=== PATIENT | female | born 1985 | race Caucasian/White ===

== ENCOUNTER 2023-01-01 08:55 | Outpatient (OUT) | payer BC, SELFPAY | END 2023-01-01 08:56 | disposition home or self-care (01) | LOC: PST 09:00 | PROVIDERS: Visit Provider Obstetrics & Gynecology | DX: Z01.818 Encounter for other preprocedural examination (principal); Z30.2 Encounter for sterilization ==

== ENCOUNTER 2023-01-10 08:40 | Day surgery (SDC) | payer BC, SELFPAY ==
[2023-01-01 09:16] VITALS: BP 124/79; PULSE 84; RESP 14; TEMP 36.4; O2SAT 98; BMI 19.6
[2023-01-10 08:59] VITALS: BP 101/71; PULSE 64; RESP 18; TEMP 36.1; O2SAT 100; BMI 19.6
[2023-01-10 08:59] LABS: Basophils Absolute Auto 0.1 10^3/uL (0.0-0.1); Basophils Percent Auto 1.1 % (0.2-2.0); Eosinophils Absolute Auto 0.2 10^3/uL (0.0-0.7); Hematocrit 44.1 % (36.0-48.0); Hemoglobin 14.8 g/dL (12.0-16.0); Lymphocytes Absolute Auto 1.4 10^3/uL (1.2-3.8); Lymphocytes Percent Auto 31.4 % (20.5-60.0); Mean Corpuscular HGB Conc 33.6 g/dL (29.9-35.2); Mean Corpuscular Hemoglobin 30.2 pg (26.7-34.0); Monocytes Absolute Auto 0.5 10^3/uL (0.3-0.8); Monocytes Percent Auto 11.1 % (1.7-12.0); Neutrophils Absolute Auto 2.4 10^3/uL (1.4-6.5); Neutrophils Percent Auto 51.4 % (43.0-75.0); Platelet Count 195 10^3/uL (150-450); Red Cell Distribution Width 11.9 % (11.0-15.0); White Blood Count 4.6 10^3/uL (4.0-11.0)
[2023-01-10 09:09] LABS: HCG Quantitative <1 mIU/mL
[2023-01-10] MEDS: LACTATED RINGER'S SOLUTION 1,000 ML 50 ML IV (09:12)
--- NOTE | 2023-01-10 11:54 | PM.ONB ---
Brief Operative Note Date of procedure: 01/10/23 Pre-op diagnosis: desires permanent sterilization, multiparity Post-op diagnosis: same Procedure: PROCEDURE: The patient was taken back to the Operating Room where she was given general anesthesia without difficulty. She was then prepped and draped in the normal sterile fashion after being placed in a dorsal lithotomy position. A wet sponge stick was placed into the patient's vagina. Attention was then turned to the patient's abdomen, where a scalpel was used to make a small infraumbilical incision. The S retractors were then used to dissect the underlying layers until the fascia could be seen. The fascia was then grasped with Priscila clamps and tented up. A knife was then used to make a small incision to the fascia. The muscle was identified, at that time two sutures of #0 Vicryl on a GI needle was then used and placed through the fascia. Theperitoneum was then identified and entered bluntly. The 10-4 Justin was then placed into the patient's abdomen. This was confirmed with direct visualization of the bowel, using the laparoscope. The patient's abdomen was then insufflated using approximately 4 liters of CO2 gas. Survey of the patient's abdomen demonstrated ovaries were normal in appearance as well as both tubes and uterus. A second and third rt and lt lateral robotics ports which were 8 mm in size, was then placed after the skin incision was made under direct visualization The robotic arms were engaged. The patient's tube on the patient's right side was identified and tented up using a grasper, the vessel sealer apparatus was then used to come across the mesosalpingx from the fimbriated end to the insertion site at the uterus, the tube was then amputated and removed in its entirety. This was done on the contralateral side. The tubes were the removed from the patients abdomen. Excellent hemostasis was noted. The lateral ports were then moved under direct visualization with excellent hemostasis. All instruments were removed from the patient's abdomen. The fascia was closed using the #0 Vicryl on GI needle. The skin was closed using 4-0 Vicryl subcuticularly. All instruments were removed from the patient's vagina as well. The patient was taken out of the dorsal lithotomy position and placed in the supine position and taken to recovery in stable condition. Sponge, lap and needle counts were correct x2. Anesthesia: GETA Surgeon: Darryn Dejesus Metal Tile Lather: Ciera Silveira Estimated blood loss (mL): 10 Pathology: other (bilateral tubes) Condition: stable Disposition: floor
[2023-01-10] MEDS: HYDROCODONE/ACETAMINOPHEN 5-325 MG TABLET 1 TAB PO (12:02)
[2023-01-10 12:05] VITALS: BP 119/83; PULSE 98; RESP 14; TEMP 36; O2SAT 99
[2023-01-10 12:29] VITALS: BP 115/75; PULSE 60; RESP 26; O2SAT 99
[2023-01-10 13:00] VITALS: BP 107/74; PULSE 64; RESP 16; O2SAT 100
--- NOTE | 2023-01-10 13:11 | PC.NURSE ---
Denies urge to void; dressings x3 intact to abdomen with scant drainage on right dressing
[2023-01-10 13:47] VITALS: BP 109/71; PULSE 65; RESP 16; O2SAT 100
== END 2023-01-10 13:40 | disposition home or self-care (01) ==
PROVIDERS: Visit Provider Obstetrics & Gynecology
PROC: (CPT 49322; principal; 2023-01-10 10:10)
DX: Z30.2 Encounter for sterilization (principal); N83.01 Follicular cyst of right ovary; E03.9 Hypothyroidism, unspecified; E28.2 Polycystic ovarian syndrome
CPT/HCPCS: 49322; 58661; 36415; 84702; 85025; 88302; 88305; J2704

== ENCOUNTER 2023-05-30 09:09 | Outpatient (OUT) | payer BC, SELFPAY ==
[2023-05-30 09:28] LABS: Basophils Absolute Auto 0.1 10^3/uL (0.0-0.1); Basophils Percent Auto 0.9 % (0.2-2.0); Eosinophils Absolute Auto 0.2 10^3/uL (0.0-0.7); Eosinophils Percent Auto 3.1 % (0.9-7.0); Hematocrit 42.6 % (36.0-48.0); Hemoglobin 13.9 g/dL (12.0-16.0); Lymphocytes Absolute Auto 2.2 10^3/uL (1.2-3.8); Lymphocytes Percent Auto 39.8 % (20.5-60.0); Mean Corpuscular HGB Conc 32.6 g/dL (29.9-35.2); Mean Corpuscular Hemoglobin 30.3 pg (26.7-34.0); Mean Corpuscular Volume 92.8 fL (81.0-99.0); Mean Platelet Volume 10.2 fL (9.5-13.5); Monocytes Absolute Auto 0.5 10^3/uL (0.3-0.8); Monocytes Percent Auto 8.9 % (1.7-12.0); Neutrophils Absolute Auto 2.6 10^3/uL (1.4-6.5); Neutrophils Percent Auto 47.3 % (43.0-75.0); Platelet Count 222 10^3/uL (150-450); Red Blood Count 4.59 10^6/uL (4.20-5.40); Red Cell Distribution Width 11.9 % (11.0-15.0); White Blood Count 5.5 10^3/uL (4.0-11.0)
[2023-05-30 09:36] LABS: Estimated Average Glucose 100 mg/dL; Glycohemoglobin A1C 5.1 % (4.5-6.2)
[2023-05-30 10:18] LABS: Alanine Aminotransferase 17 U/L (14-59); Alkaline Phosphatase 53 U/L (46-116); Anion Gap 13.4; Aspartate Amino Transferase 16 U/L (15-37); BUN Creatinine Ratio 18.1; Bilirubin Total 0.7 mg/dL (0.2-1.0); Calcium 9.3 mg/dL (8.5-10.1); Carbon Dioxide 27.3 mmol/L (21.0-32.0); Chloride 103 mmol/L (98-107); Chol HDL Ratio 2.7; Cholesterol 178 mg/dL (<=200); Estimated GFR (African America >60 (>=60); Estimated GFR (Non-African Ame >60 (>=60); Globulin 3.9 g/dL; Glucose 97 mg/dL (74-106); HDL Cholesterol 66 mg/dL (40-60); Potassium 3.7 mmol/L (3.5-5.1); Sodium 140 mmol/L (136-145); Thyroid Stimulating Hormone 2.156 uIU/mL (0.358-3.740); Total Protein 7.9 g/dL (6.4-8.2); Triglycerides 50 mg/dL (<=150)
== END 2023-05-30 09:10 | disposition home or self-care (01) ==
LOC: LAB 09:10
PROVIDERS: PCP Nurse Practitioner; Visit Provider Nurse Practitioner
DX: Z00.00 Encounter for general adult medical examination without abnormal findings (principal)
CPT/HCPCS: 36415; 80053; 80061; 83036; 84443; 85025

== ENCOUNTER 2024-02-16 20:43 | Outpatient (REF) | payer BC, SELFPAY ==
--- OUTSIDE RECORDS SUMMARY | 2024-02-16 20:45 | XMS_ITS | CCD ---
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 Name Role Phone Gaurav Mcdaniels Unavailable Pricila Valdes Unavailable Unavailable YARED ., DR LAGUNA Attending Unavailable YARED ., DR LAGUNA Consulting Unavailable YARED ., DR LAGUNA Admitting Unavailable DR GAURAV MCDANIELS Primary Care Unavailable DENNIS HARRIS Attending Unavailable DENNIS HARRIS Attending Unavailable DENNIS HARRIS Attending Unavailable Allergies Allergy Classification Reported Allergen(s) Allergy Type Date of Onset Reaction(s) Facility (1 source) Sulfonamides (Antibiotic) Hives/Urticaria [facility] (1 source) Sulfonamides (Antibiotic) Drug allergy (disorder) 0 [facility] Medications Current Medications Medication Drug Class(es) Dates Sig (Normalized) Sig (Original) valACYclovir 500 mg oral tablet (1 source) Herpesvirus Nucleoside Analog DNA Polymerase Inhibitor, Herpes Simplex Virus Nucleoside Analog DNA Polymerase Inhibitor, Herpes Zoster Virus Nucleoside Analog DNA Polymerase Inhibitor Start: 04-25-2021 End: 05-01-2021 take 2 tablets by mouth every eight hours valACYclovir 500 mg oral tablet ; 2 tab(s) orally every 8 hours Quantity: 42 Refills: 0 Ordered: 25-Apr-2021 Pricila Valdes Start: 25-Apr-2021 End: 01-May-2021 Generic Substitution Allowed Comments: It is very important that you take or use this exactly as directed. Do not skip doses or discontinue unless directed by your doctor. Comment on above: It is very important that you take or use this exactly as directed. Do not skip doses or discontinue unless directed by your doctor. Problems Problem Classification Problem Date Documented Date Episodic/Chronic Allergic reactions (2 sources) Skin irritation 04-25-2021 Episodic Comment on above: SKIN IRRITATION Immunizations and screening for infectious disease (1 source) Encounter for screening for human papillomavirus (HPV); Translations: [ENC SCREENING HUMAN PAPILLOMAVIRUS] Onset: 10-19-2022 Episodic Other screening for suspected conditions (not mental disorders or infectious disease) (4 sources) Encounter for screening for malignant neoplasm of cervix; Translations: [ENC SCREENING MALIG NEOPLASM CERV] Onset: 10-15-2022 Episodic Unclassified (1 source) Shingles 04-25-2021 Viral infection (1 source) Herpes zoster; Translations: [Herpes zoster without mention of complication] 04-25-2021 Episodic Results Test Name Value Interpretation Reference Range Facil ity PAP ACOG PANEL 2: 30 to 65on 10-22-2022 . . Normal [facility] Comment on above: Result Comment: Performed at: WB Performed By: #### [id number] #### [facility] [address] [address] [address] Sangeetha Reeder Age Gdln ACOG Testing 30-65 Normal [facility] Comment on above: Performed By: #### [id number] #### [facility] [address] [address] [address] Sangeetha Reeder DIAGNOSIS: Comment Normal [facility] Comment on above: Result Comment: NEGATIVE FOR INTRAEPITHE LIAL LESION OR MALIGNANCY. Performed at: WB Performed By: #### [id number] #### [facility] [address] [address] [address] Sangeetha Reeder HPV Aptima Negative Normal Negative [facility] Comment on above: Result Comment: This nucleic acid amplif ication test detects fourteen high-risk HPV types (16,18,31,33,35,39,45,51,52,56,58,59,66,68) without differentiation. Performed at: =G Performed By: #### [id number] #### [facility] [address] [address] [address] Sangeetha Reeder HPV Genotype Reflex Comment Normal [facility] Comment on above: Result Comment: Criteria not met, HPV Ge notype not performed. Performed at: WB Performed By: #### [id number] #### [facility] [address] [address] [address] Sangeetha Reeder Methodology: Comment Normal [facility] Comment on above: Result Comment: This liquid based ThinPr ep(R) pap test was screened with the use of an image guided system. Performed at: WB Performed By: #### [id number] #### [facility] [address] [address] [address] Sangeetha Reeder Note: Comment Normal [facility] Comment on above: Result Comment: The Pap smear is a scree zohaib test designed to aid in the detection of premalignant and malignant conditions of the uterine cervix. It is not a diagnostic procedure and should not be used as the sole means of detecting cervical cancer. Both false-positive and false-negative reports do occur. . Performed at: WB Performed By: #### [id number] #### [facility] [address] [place] [address] Dr. Sangeetha Reeder Performed by: Comment Normal [facility] Comment on above: Result Comment: Mackenzie Stafford, Cytotech nologist (ASCP) Performed at: WB Performed By: #### [id number] #### [facility] [address] [address] [address] Sangeetha Reeder Specimen adequacy: Comment Normal [facility] Comment on above: Result Comment: Satisfactory for evaluat ion. Endocervical and/or squamous metaplastic cells (endocervical component) are present. Performed at: WB Performed By: #### [id number] #### [facility] [address] [place] [address] Dr. Sangeetha Reeder Provider Note - ED v2on 11-0 Provider Note - ED v2 Provider Note - ED v2: Chart Review: HISTORY OF PRESENTING ILLNESS RODRIGO is a 35 year old Female and was seen by me at 25-Apr-2021 10:39 for a chief complaint of rash. The historian is the patient. Additional Details: Patient presents with 4-day history of rash on her right abdomen. Patient endorses the area was painful a couple of days before the rash showed up, stated it felt tender like a bruise, now she endorses a slight burning sensation on the rash. She denies any symptoms like headache, fever, chills, body aches, fatigue, nausea, vomiting, diarrhea now or before the rash.. She states she did have chickenpox as a child. She is here with her daughter who is going to be one next week and is not vaccinated for chickenpox. Triage Information: Most recent Vital Sign Value Date PAST MEDICAL HISTORY ATTESTATION: I have reviewed and confirmed nurse's/medic's notes for patient's medications, allergies, and medical, surgical, family and social history ALLERGIES/INTOLERANCES: Allergy Allergen: sulfa drugs Type: Drug Category Reaction: Hives/Urticaria HEALTH HISTORY: No documented data. OUTPATIENT MEDICATIONS: Home Medications Review Status for Reconciliation: Complete Med Status: Patient Currently Takes Medications Drug Name: valACYclovir 500 mg oral tablet Instructions: 2 tab(s) orally every 8 hours SIGNIFICANT EVENTS: Other Description:NON SMOKER Additional Notes:04/2021 Past Medical History Description:NO CHRONIC HEALTH ISSUES Additional Notes:04/2021 Past Surgical History Description:NO SURGICAL HISTORY THIS YEAR Additional Notes:04/2021 CHIROPRACTIC CARE: Is : no Is : no REVIEW OF SYSTEMS CONSTITUTIONAL: Negative for: chills, fever and malaise CARDIOVASCULAR: Negative for: chest pain RESPIRATORY: Negative for: dyspnea GASTROINTESTINAL: Negative for: diarrhea, nausea and vomiting; MUSCULOSKELETAL: Negative for: pain INTEGUMENTARY: POSITIVE for: rash Negative for: itching; NEUROLOGICAL: Negative for: headache; All other systems reviewed and are negative RESULTS/VITAL SIGNS VITAL SIGNS: T PRBP SpO2O2(LPM) %FiO2 Method 25-Apr-2021 10:10:[id number] PHYSICAL EXAM CONSTITUTIONAL: Appearance: well appearing Development: well developed Distress: no apparent Manner: appropriate for situation Mentation: awake and alert Mood: appropriate Nourishment: well HENMT: Head Examination: atraumatic Face: no signs of abnormality EYES: Bilteral Eyes: clear Left Conjunctiva: clear Right Conjunctiva: clear CARDIOVASCULAR: Cardiac Rate: normal RESPIRATORY: Respiratory Distress: no respiratory distress NEUROLOGICAL: Level of Consciousness: alert and follows commands Memory: memory/cognition intact Speech: clear Gait and Weight Bearing: normal SKIN: Skin Color: normal for race Skin Temperature: warm and dry Rash Description: PATCHY AREAS; REDDENED and VESICULAR Rash Location: Patchy areas of raised erythema with 1 or 2 vesicles beginning to appear in a linear pattern going around the right trunk. The lesions do not cross the midline and are consistent with shingles presentation. PSYCHIATRIC: Alert and oriented to person, place, time/situation. normal mood and affect. No apparent risk to self or others. MEDICAL DECISION MAKING/ED COURSE MDM/ED COURSE: Discussed Findings with: patient Data Reviewed: vital signs Treatment Plan: Discussed the nature of shingles, advised patient it is very contagious and she should avoid those who are not immune to chickenpox. Advised patient to call her daughter's coke loader to discuss altering her vaccination schedule, or signs or symptoms they should watch for or treatments they should do. Mother states her daughter has a couple of small little red dots on her back. Provided prescription for valacyclovir, provided work note. 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 Discussed signs and symptoms of worsening illness and reasons to follow-up. Patient verbalized understanding and agreement with plan. The pt's clinical presentation is otherwise unremarkable at this time. Based on exam and clinical findings the pt is stable for discharge with instructions to follow up with primary care or seek emergency medical attention for worsening symptoms or any new concerns. CLINICAL IMPRESSION Diagnosis/Annotation: ED Dx Name:Thiago Code:B02.9 Disposition: discharged Type: home ATTESTATION CRITICAL CARE TIME Is this a critically ill patient: no Electronic Signatures: Pricila Valdes (CERTIFIED CORPORATE TRAVEL EXECUTIVE-RISK CONTROL SPECIALIST) (Signed 25-Apr-2021 10:59) Authored: HPI, PMH, ROS, PE, Results/Vital Signs, MDM/ED Course, Clinical Impression, Attestation, Chart Review, Scores Last Updated: 25-Apr-2021 10:59 by Flori Valdes (more content not included)... [facility] Vital Signs Date Time Vital Sign Value Performing Clinician Facility 04-25-2021 [id number] Body height 162.5 cm Gaurav Mcdaniels Other Phone: [facility] 04-25-2021 12:10-040 Body temperature 97.52 [degF] Gaurav Mcdaniels Other Phone: [facility] 04-25-2021 12:10-040 Diastolic blood pressure 68 mm[Hg] Gaurav Mcdaniels Other Phone: [facility] 04-25-2021 12:10-0400 Heart rate 87 /min Gaurav Mcdaniels Other Phone: [facility] 04-25-2021 12:10-0400 Respiratory rate 20 /min Gaurav Mcdaniels Other Phone: [facility] 04-25-2021 12:10-0400 SaO2% (BldA) [Mass fraction] 97 % Gaurav Mcdaniels Other Phone: [facility] 04-25-2021 12:10-0400 Systolic blood pressure 101 mm[Hg] Gaurav Mcdaniels Other Phone: [facility] Encounters Encounter Date Encounter Type Care Provider Facility Start: 01-21-2024 End: 01-21-2024 ambulatory DENNIS AICHHOLZ Not Available Start: 09-11-2023 End: 09-11-2023 ambulatory DENNIS AICHHOLZ Not Available Start: 05-26-2023 End: 05-26-2023 ambulatory DENNIS AICHHOLZ Not Available Start: 10-15-2022 End: 10-15-[address] LUZ ELENA VAIL . Facility: Start: 04-25-2021 End: 04-25-2021 Emergency department patient visit Pricila Valdes [facility] Payers Date Payer Category Payer Unknown [id number] 1985 Unknown [id number] [id number] [id number] 1986 Unknown [id number] [id number] 1986 Unknown [id number] [id number] [id number] 1986 Unknown [id number] Unknown Social History Date Type Detail Facility [facility] Tobacco smoking consumption unknown [facility] Summary Purpose Family History No Family History Records FoundNo Family History Records FoundNo Family History Records Found Advance Directives No Advanced Directives Records FoundNo Advanced Directives Records FoundNo Advanced Directives Records Found Additional Source Comments <item> Privacy Markings (unrecogniz ed section and content) Section Author: Mellissa Lieberman PROHIBITION ON REDISCLOSURE OF CONFIDENTIAL INFORMATION This notice accompanies a disclosure of information concerning a client made to you with the consent of such client. INFORMATION SOURCE (unrecogn ized section and content) DATE CREATED AUTHOR 04/30/2021 [facility] DATE CREATED AUTHOR AUTHOR'S ORGANIZ ATION 10/23/2022 [facility] DATE CREATED AUTHOR AUTHOR'S ORGANIZ ATION 01/23/2024 [facility] FOR RECORDS PERTAINING TO PATIENTS WHO ARE OR HAVE BEEN ENROLLED IN A CHEMICAL DEPENDENCY/SUBSTANCEABUSE PROGRAM, SOME INFORMATION MAY BE OMITTED. This clinical summary was aggregated from multiple sources. Caution should be exercised in using it in the provision of clinical care. This summary normalizes information from multiple sources, and as a consequence, information in this document may materially change the coding, format and clinical context of patient data. In addition, data may be omitted in some cases. CLINICAL DECISIONS SHOULD BE BASED ON THE PRIMARY CLINICAL RECORDS. [facility] [employer] provides no warranty or guarantee of the accuracy or completeness of information in this document.
== END 2024-02-16 20:44 | disposition home or self-care (01) ==
LOC: LAB 20:43
PROVIDERS: PCP Nurse Practitioner; Visit Provider Physician Assistant
DX: Z01.419 Encounter for gynecological examination (general) (routine) without abnormal findings (principal)
CPT/HCPCS: 87624; 88175

== ENCOUNTER 2024-10-01 09:33 | Outpatient (OUT) | payer BC, SELFPAY ==
--- OUTSIDE RECORDS SUMMARY | 2024-10-01 09:50 | XMS_ITS | CCD ---
Author Organization [facility] Care Team Providers Care Hand Crocheter Name Role Phone Gaurav Mcdaniels Unavailable Pricila Valdes Unavailable Unavailable YARED ., DR LAGUNA Attending Unavailable YARED ., DR LAGUNA Consulting Unavailable YARED ., DR LAGUNA Admitting Unavailable DR GAURAV MCDANIELS Primary Care Unavailable Aicjameson EMPLOYMENT CONSULTANT, Elizabeth Unavailable Aaron Bliss MD Primary Care Provider [phone] Betty EMPLOYMENT CONSULTANT, Elizabeth Unavailable Betty EMPLOYMENT CONSULTANT, Elizabeth Unavailable ELIZABETH HERNÁNDEZ Attending Unavailable ELIZABETH HERNÁNDEZ Attending Unavailable ELIZABETH HERNÁNDEZ Attending Unavailable MACKENZIE MONREAL Attending Unavailable BETTY, ELIZABETH Attending Unavailable Allergies Allergy Classification Reported Allergen(s) Allergy Type Date of Onset Reaction(s) Facility (1 source) Sulfonamides (Antibiotic) Hives/Urticaria [facility] (1 source) Sulfonamides (Antibiotic) Drug allergy (disorder) 0 [facility] (3 sources) Sulfonamides (Antibiotic) Propensity to adverse reactions 3 Hives [facility] Medications Current Medications Medication Drug Class(es) Dates Sig (Normalized) Sig (Original) levothyroxine sodium 0.05 mg oral tablet (3 sources) l-Thyroxine End: 04-21-2024 take 1 tablet by mouth in the morning levothyroxine (Synthroid, Levoxyl) 50 MCG tablet Take 50 mcg by mouth in the morning. 04/21/2024 Discontinued Progesterone (First-Progesterone VGS) 200 MG suppository (3 sources) End: 04-21-2024 Progesterone (First-Progesterone VGS) 200 MG suppository Insert 200 mg into the vagina at bedtime 04/21/2024 Discontinued (Therapy completed) Progesterone (Fi rst-Progesterone VGS) 200 MG suppository Insert 200 mg into the vagina at bedtime Active traZODone hydrochloride 50 mg oral tablet (5 sources) Serotonin Reuptake Inhibitor Start: 01-21-2024 End: 07-20-2024 traZODone (Desyrel) 50 MG tablet Indications: Insomnia, unspecified type Take 2 tablets (100 mg) by mouth as needed at bedtime for sleep May take 1 or 2 tabs at bedtime as needed for sleep 180 tablet 1 04/21/2024 07/20/2024 Active valACYclovir 500 mg oral tablet (1 source) [...] discontinue unless directed by your doctor. Problems Active Problems Problem Classification Problem Date Documented Date Episodic/Chronic Allergic reactions (2 sources) Skin irritation 04-25-2021 Episodic Comment on above: SKIN IRRITATION Esophageal disorders (3 sources) Gastroesophageal reflux disease; Translations: [Gastro-esophageal reflux disease without esophagitis] Onset: 05-26-2023 05-26-2023 Chronic Immunizations and screening for infectious disease (1 source) Encounter for screening for human papillomavirus (HPV); Translations: [ENC SCREENING HUMAN PAPILLOMAVIRUS] Onset: 10-19-2022 Episodic Miscellaneous mental health disorders (2 sources) Primary insomnia; Translations: [Primary insomnia] 04-21-2024 Chronic Other endocrine disorders (3 sources) Polycystic ovary syndrome; Translations: [Polycystic ovarian syndrome] Onset: 05-26-2023 05-26-2023 Chronic Other screening for suspected conditions (not mental disorders or infectious disease) (4 sources) Encounter for screening for malignant neoplasm of cervix; Translations: [ENC SCREENING MALIG NEOPLASM CERV] Onset: 10-15-2022 Episodic Residual codes; unclassified (5 sources) Insomnia; Translations: [Insomnia, unspecified] Onset: 05-26-2023 05-26-2023 Episodic Unclassified (1 source) Shingles 04-25-2021 Viral infection (1 source) Herpes zoster; Translations: [Herpes zoster without mention of complication] 04-25-2021 Episodic Past or Other Problems Problem Classification Problem Date Documented Date Episodic/Chronic Cancer of cervix (6 sources) Cervicovaginal cytology: High grade squamous intraepithelial lesion or carcinoma; Translations: [High grade squamous intraepithelial lesion on cytologic smear of cervix (HGSIL)] Onset: 05-26-2023 05-26-2023 Episodic Other complications of (3 sources) Hypothyroidism in ; Translations: [Endocrine, nutritional and metabolic diseases complicating , unspecified trimester] Onset: 05-26-2023 01-21-2024 Episodic Other female genital disorders (3 sources) Fallopian tube disorder; Translations: [Noninflammatory disorder of ovary, fallopian tube and broad ligament, unspecified] Onset: 05-26-2023 05-26-2023 Episodic Sexually transmitted infections (not HIV or hepatitis) (3 sources) Human papillomavirus deoxyribonucleic acid test positive, high risk on cervical specimen; Translations: [Cervical high risk human papillomavirus (HPV) DNA test positive] Onset: 05-26-2023 05-26-2023 Episodic Results Test Name Value Interpretation Reference Range Facil ity PAP ACOG PANEL 2: 30 to 65on 10-22-2022 . . [facility] Comment on above: Result Comment: Performed at: WB Performed By: #### [id number] #### [facility] [address] [address] [address] Sangeetha Reeder Age Gdln ACOG Testing 30-65 [facility] Comment on above: Performed By: #### [id number] #### [facility] [address] [address] [address] Sangeetha Reeder DIAGNOSIS: Comment [facility] Comment on above: Result Comment: NEGATIVE FOR INTRAEPITHE LIAL LESION OR MALIGNANCY. Performed at: WB Performed By: #### [id number] #### [facility] [address] [place] [address] Dr. Sangeetha Reeder HPV Aptima Negative Normal Negative [facility] Comment on above: Result Comment: This nucleic acid amplif ication test detects fourteen high-risk HPV types (16,18,31,33,35,39,45,51,52,56,58,59,66,68) without differentiation. Performed at: =G Performed By: #### [id number] #### [facility] [address] [place] [address] Dr. Sangeetha Reeder HPV Genotype Reflex Comment Normal [facility] Comment on above: Result Comment: Criteria not met, HPV Ge notype not performed. Performed at: WB Performed By: #### [id number] #### [facility] [address] [place] [address] Dr. Sangeetha Reeder Methodology: Comment Normal [facility] Comment on above: Result Comment: This liquid based ThinPr ep(R) pap test was screened with the use of an image guided system. Performed at: WB Performed By: #### [id number] #### [facility] [address] [place] [address] Dr. Sangeetha Reeder Note: Comment Normal [facility] Comment on above: Result Comment: [...] Performed at: WB Performed By: #### [id number] #### [facility] [address] [place] [address] Dr. Sangeetha Reeder Performed by: Comment Normal [facility] Comment on above: Result Comment: Mackenzie Stafford, Cytotech nologist (ASCP) Performed at: WB Performed By: #### [id number] #### [facility] [address] [place] [address] Dr. Sangeetha Reeder Specimen adequacy: Comment Normal [facility] Comment on above: Result Comment: Satisfactory for evaluat ion. Endocervical and/or squamous metaplastic cells (endocervical component) are present. Performed at: WB Performed By: #### [id number] #### [facility] [address] [address] [address] 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 Advised patient to call her daughter's brush maker to discuss altering her vaccination schedule, or [...] new concerns. CLINICAL IMPRESSION Diagnosis/Annotation: ED Dx Name:Shingles Code:B02.9 Disposition: discharged Type: home ATTESTATION CRITICAL CARE TIME Is this a critically ill patient: no Electronic Signatures: Pricila Valdes (PARKING LOT SIGNALER-LOCAL SALES ASSOCIATE) (Signed 25-Apr-2021 10:59) Authored: HPI, PMH, ROS, PE, Results/Vital Signs, MDM/ED Course, Clinical Impression, Attestation, Chart Review, Scores Last Updated: 25-Apr-2021 10:59 by Flori Valdes (more content not included)... Normal [facility] Vital Signs Date Time Vital Sign Value Performing Clinician Facility 04-21-2024 11:08-0400 Body height 162.6 cm Elizabeth Aichholz EMPLOYMENT CONSULTANT Work Phone: [facility] 04-21-2024 11:08-0400 Body mass index (BMI) [Ratio] 19.64 kg/m2 Elizabeth Aichholz EMPLOYMENT CONSULTANT Work Phone: [facility] 04-21-2024 11:08-0400 Body temperature 98.49 [degF] Elizabeth Aichholz EMPLOYMENT CONSULTANT Work Phone: [facility] 04-21-2024 11:08-0400 Body weight 51.89 kg Elizabeth Aichholz EMPLOYMENT CONSULTANT Work Phone: [facility] 04-21-2024 11:08-0400 Diastolic blood pressure 78 mm[Hg] Elizabeth Aichholz EMPLOYMENT CONSULTANT Work Phone: [facility] 04-21-2024 11:08-0400 Heart rate 68 /min Elizabeth Aichholz EMPLOYMENT CONSULTANT Work Phone: [facility] 04-21-2024 11:08-0400 Respiratory rate 18 /min Elizabeth Aichholz EMPLOYMENT CONSULTANT Work Phone: [facility] 04-21-2024 11:08-0400 SaO2% (BldA) [Mass fraction] 98 % Elizabeth Aichholz EMPLOYMENT CONSULTANT Work Phone: [facility] 04-21-2024 11:08-0400 Systolic blood pressure 104 mm[Hg] Elizabeth Aichholz EMPLOYMENT CONSULTANT Work Phone: [facility] 04-25-2021 12:10-0400 Body height 162.5 cm Gaurav Mcdaniels Other Phone: [facility] 04-25-2021 12:10-0400 Body temperature 97.52 [degF] Gaurav Mcdaniels Other Phone: [facility] 04-25-2021 12:10-0400 Diastolic blood pressure 68 mm[Hg] Gaurav Mcdaniels Other Phone: [facility] 04-25-2021 12:10-0400 Heart rate 87 /min Gaurav Mcdaniels Other Phone: [facility] 04-25-2021 12:10-0400 Respiratory rate 20 /min Gaurav Mcdaniels Other Phone: [facility] 04-25-2021 12:10-0400 SaO2% (BldA) [Mass fraction] 97 % Gaurav Mcdaniels Other Phone: [facility] 04-25-2021 12:10-0400 Systolic blood pressure 101 mm[Hg] Gaurav Mcdaniels Other Phone: [facility] Encounters Encounter Date Encounter Type Care Provider Facility Start: 04-21-2024 End: 04-21-2024 Bamboo flowsheet Elizabeth Hernández EMPLOYMENT CONSULTANT Work Phone: [facility] Start: 04-21-2024 End: 04-21-2024 Bamboo flowsheet Elizabeth Hernández EMPLOYMENT CONSULTANT Work Phone: [facility] Start: 04-21-2024 End: 04-21-2024 Patient encounter status Elizabeth Hernández EMPLOYMENT CONSULTANT Work Phone: [facility] Start: 04-21-2024 End: 04-21-2024 Periodic preventive med est patient 18-39 yrs Elizabeth Hernández EMPLOYMENT CONSULTANT Work Phone: [facility] Comment on above: Encounter for wellne ss examination (Primary Dx); Primary insomnia; Insomnia, unspecified type Start: 04-21-2024 End: 04-21-2024 ambulatory ELIZABETH SIMSHOLZ Not Available Start: 02-16-2024 End: 02-16-2024 ambulatory MACKENZIE MONREAL Not Available Start: 01-21-2024 End: 01-21-2024 ambulatory ELIZABETH AICHHOLZ Not Available Start: 09-11-2023 End: 09-11-2023 ambulatory ELIZABETH AICHHOLZ Not Available Start: 05-26-2023 End: 05-26-2023 ambulatory ELIZABETH AICHHOLZ Not Available Start: 10-15-2022 End: 10-15-[address] LUZ ELENA VAIL . Facility: Start: 04-25-2021 End: 04-25-2021 Emergency department patient visit Pricila Lucio [facility] Procedures Date Procedure Procedure Detail Performing Clinician Start: 02-16-2024 Microscopic observat ion [Identifier] in Cervix by Cyto stain Elizabeth Simsyehuda EMPLOYMENT CONSULTANT Work Phone: Plan of Treatment Date Care Activity Detail Author Start: 02-15-2027 Screening for malign ant neoplasm of cervix [facility] Start: 04-21-2024 End: 04-21-2025 CBC W Auto Differential panel - Blood CBC and differential Lab Routine Encounter for wellness examination Expected: 04/21/2024 (Approximate), Expires: 04/21/2025 [facility] Work Phone: Comment on above: Expected: 04/21/2024 (Approximate), Expires: 04/21/2025 Start: 04-21-2024 End: 04-21-2025 Comprehensive metabolic 2000 panel - Serum or Plasma Comprehensive metabolic panel Lab Routine Encounter for wellness examination Expected: 04/21/2024 (Approximate), Expires: 04/21/2025 [facility] Comment on above: Expected: 04/21/2024 (Approximate), Expires: 04/21/2025 Start: 04-21-2024 End: 04-21-2025 Hemoglobin A1c/Hemoglobin.total in Blood Hemoglobin A1c Lab Routine Encounter for wellness examination Expected: 04/21/2024 (Approximate), Expires: 04/21/2025 [facility] Comment on above: Expected: 04/21/2024 (Approximate), Expires: 04/21/2025 Start: 04-21-2024 End: 04-21-2025 Lipid 1996 panel - Serum or Plasma Lipid panel Lab Routine Encounter for wellness examination Expected: 04/21/2024 (Approximate), Expires: 04/21/2025 [facility] Comment on above: Expected: 04/21/2024 (Approximate), Expires: 04/21/2025 Start: 04-21-2024 End: 04-21-2025 Thyrotropin [Units/volume] in Serum or Plasma TSH Lab Routine Encounter for wellness examination Expected: 04/21/2024 (Approximate), Expires: 04/21/2025 [facility] Comment on above: Expected: 04/21/2024 (Approximate), Expires: 04/21/2025 Start: 04-21-2024 End: 04-21-2024 Patient encounter procedure 04/21/2024 11:00 AM EDT Office Visit [facility] [address] [place] [phone] Elizabeth Hernández NP [address] [place] [id number] Encounter for wellness examination (Primary Dx) [facility] Comment on above: Encounter for wellne ss examination (Primary Dx) Start: 02-22-2024 Influenza vaccination Influenza Vacc ine (#1) [facility] Start: 2016 Screening for malign ant neoplasm of cervix HPV/Cotest [facility] Immunizations Immunization Date Immunization Notes Care Provider Fa cili 05-03-2020 diphtheria, tetanus toxoids and pertussis vaccine Elizabeth Hernández EMPLOYMENT CONSULTANT Work Phone: [facility] 05-03-2020 influenza, injectabl e, quadrivalent, preservative free Elizabeth Hernández EMPLOYMENT CONSULTANT Work Phone: [facility] 05-03-2020 influenza virus vacc ine, unspecified formulation Elizabeth Hernández EMPLOYMENT CONSULTANT Work Phone: [facility] 02-03-2007 measles, mumps and r ubella virus vaccine Elizabeth Hernández EMPLOYMENT CONSULTANT Work Phone: [facility] 01-28-2007 tetanus toxoid, redu tor diphtheria toxoid, and acellular pertussis vaccine, adsorbed Elizabethernie Hernández EMPLOYMENT CONSULTANT Work Phone: [facility] 02-07-2005 hepatitis B vaccine, pediatric or pediatric/adolescent dosage Elizabeth Hernández EMPLOYMENT CONSULTANT Work Phone: [facility] 12-13-2004 hepatitis B vaccine, pediatric or pediatric/adolescent dosage Elizabethernie Hernández EMPLOYMENT CONSULTANT Work Phone: [facility] 12-13-2004 meningococcal polysaccharide vaccine (MPSV4) Elizabethernie Hernández EMPLOYMENT CONSULTANT Work Phone: [facility] 01-17-1999 hepatitis B vaccine, pediatric or pediatric/adolescent dosage Elizabeth Hernández EMPLOYMENT CONSULTANT Work Phone: [facility] 01-17-1999 measles, mumps and r ubella virus vaccine Elizabethernie Hernández EMPLOYMENT CONSULTANT Work Phone: [facility] Healthcare Payers Date Payer Category Payer [facility] er [id number] 2022 Unknown [id number] 1986 Unknown [id number] 1986 Unknown [id number] 1986 Unknown [id number] 1986 Unknown [id number] 1986 Unknown [id number] 1986 Unknown [id number] Unknown Social History Date Type Detail Facility [facility] Tobacco smoking consumption unknown [facility] Start: 01-21-2024 [facility] Start: 01-21-2024 Tobacco use and exposure Smokeless tobacco non-user [facility] Start: 02-16-2024 End: 04-21-2024 Alcoholic beverage intake Lifetime non-drinker (finding) [facility] Start: 05-25-2023 End: 01-21-2024 History of Social function [facility] Start: 05-25-2023 End: 01-21-2024 Humiliation, Afraid, Rape, and Kick questionnaire [HARK] [facility] Within the last year , have you been afraid of your partner or ex-partner? No [facility] Frequency of Communication with Friends and Family Not on file [facility] Are you now , , , , never or living with a partner? [facility] (I/We) worried wheth er (my/our) food would run out before (I/we) got money to buy more. Never true [facility] Start: 1985 Sex assigned at Not on file [facility] NEGATED: Highlighted rowStart: NINF History of tobacco use Passive smoker [facility] History of Present illness Narrative 04-21-2024 Elizabeth Hernández NP - 04/21/2024 11:20 AM Zuleyma Hernández NP - 04/21/2024 11:20 AM Zuleyma Hernández NP - 04/21/2024 11:00 AM EDT Note Date & Type Note Facility 04-21-2024 History of Presen t illness Narrative Associated Problem(s): Insomnia Continue current meds at current dose Is doing well Associated Problem(s): Encounter for wellness examination Reviewed Ht/Wt/BMI Recommend eye exam yearly Recommend dental exams twice a year Balance work/leisure activities Exercises is recommended most days of the week (appropriate as chronic conditions allow) Follow up yearly and prn Images from the original note were not included. Irma Marino is a 38 y.o. female presents with chief complaint of No chief complaint on file. HPI: Wellness; Diet: Activity: Mental Health: Concerns; Vaccines: will get flu shot through employer SUBJECTIVE: MEDICATIONS: Current Outpatient Medications Medication Instructions traZODone (DESYREL) 100 mg, Oral, Nightly PRN, May take 1 or 2 tabs at bedtime as needed for sleep ALLERGIES: Allergies Allergen Reactions Sulfa Antibiotics Hives REVIEW OF SYMPTOMS: Review of Systems Constitutional: Negative for appetite change, chills and fever. HENT: Negative for congestion, ear pain and sore throat. Eyes: Negative for pain, discharge, redness and visual disturbance. Respiratory: Negative for cough, shortness of breath and wheezing. Cardiovascular: Negative for chest pain, palpitations and leg swelling. Gastrointestinal: Negative for abdominal pain, blood in stool, constipation, diarrhea, nausea and vomiting. Genitourinary: Negative for difficulty urinating, dysuria and frequency. Musculoskeletal: Negative for arthralgias, back pain, joint swelling and myalgias. Skin: Negative for rash and wound. Neurological: Negative for dizziness, tremors, seizures, syncope and headaches. Psychiatric/Behavioral: Negative for behavioral problems, self-injury and suicidal ideas. The patient is not nervous/anxious. Hematological: Does not bruise/bleed easily. Endocrine: Negative for polydipsia, polyphagia and polyuria. Allergic/Immunologic: Negative for environmental allergies and food allergies. PAST MEDICAL HISTORY Past Medical History: Diagnosis Date ASCUS with positive high risk HPV cervical 09/11/2023 Fallopian tube disorder History of hyperthyroidism Insomnia Past Surgical History: Procedure Laterality Date DILATION AND CURETTAGE 02/2019 family history includes Asthma in her sister; Breast cancer in her maternal grandmother; Cancer in her maternal grandmother. OBJECTIVE: Visit Vitals BP 104/78 (BP Location: Left arm, Patient Position: Sitting, BP Cuff Size: Adult long) Pulse 68 Temp 98.5 F (Temporal) Resp 18 Ht 5' 4 Wt 114 lb 6.4 oz SpO2 98% BMI 19.64 kg/m Smoking Status Never BSA 1.53 m Physical Exam Vitals and nursing note reviewed. Constitutional: General: She is not in acute distress. Appearance: Normal appearance. HENT: Head: Normocephalic and atraumatic. Right Ear: External ear normal. Left Ear: External ear normal. Nose: Nose normal. Mouth/Throat: Mouth: Mucous membranes are moist. Pharynx: No oropharyngeal exudate or posterior oropharyngeal erythema. Eyes: Extraocular Movements: Extraocular movements intact. Conjunctiva/sclera: Conjunctivae normal. Neck: Vascular: No carotid bruit. Cardiovascular: Rate and Rhythm: Normal rate and regular rhythm. Pulses: Normal pulses. Heart sounds: Normal heart sounds. Pulmonary: Effort: Pulmonary effort is normal. Breath sounds: Normal breath sounds. Abdominal: General: Bowel sounds are normal. There is no distension. Palpations: Abdomen is soft. There is no mass. Tenderness: There is no abdominal tenderness. Musculoskeletal: General: Normal range of motion. Cervical back: Normal range of motion and neck supple. Right lower leg: No edema. Left lower leg: No edema. Lymphadenopathy: Cervical: No cervical adenopathy. Skin: General: Skin is warm and dry. Capillary Refill: Capillary refill takes 2 to 3 seconds. Findings: No rash. Neurological: General: No focal deficit present. Mental Status: She is alert and oriented to person, place, and time. Psychiatric: Mood and Affect: Mood normal. Behavior: Behavior normal. Thought Content: Thought content normal. Judgment: Judgment normal. ASSESSMENT AND PLAN: No follow-ups on file. Problem List Items Addressed This Visit Insomnia Continue current meds at current dose Is doing well Relevant Medications traZODone (Desyrel) 50 MG tablet Encounter for wellness examination - Primary Reviewed Ht/Wt/BMI Recommend eye exam yearly Recommend dental exams twice a year Balance work/leisure activities Exercises is recommended most days of the week (appropriate as chronic conditions allow) Follow up yearly and prn Relevant Orders CBC and differential Comprehensive metabolic panel TSH Lipid panel Hemoglobin A1c documented in this encounter [facility] Evaluation note Note Date & Type Note Facility Evaluation note Diagnosis Insomnia, unspecified type- Primary Insomnia, unspecified type Primary insomnia- Primary Persistent disorder of initiating or maintaining sleep Insomnia, unspecified type Encounter for wellness examination- Primary Primary insomnia Persistent disorder of initiating or maintaining sleep Insomnia, unspecified type documented in this encounter [facility] Summary Purpose Family History No Family History [...] section and content) DATE CREATED AUTHOR 04/30/2021 [facility] DATE CREATED AUTHOR AUTHOR'S ORGANIZ ATION 10/23/2022 [facility] DATE CREATED AUTHOR AUTHOR'S ORGANIZ ATION 04/23/2024 [facility] dical Specialists EPIC Care Teams (unrecognized sec tion and content) Hand Crocheter Relationship Specialty Start Date End Date Aaron Bliss MD [address] [place] [phone] PCP - General Family Medicine 09/11/23 Elizabeth Hernández NP [address] [place] [phone] PCP - [employer] 10/22/23 Elizabeth Hernández NP [address] [place] [phone] Nurse Practitioner Family Medicine 04/23/23 Elizabeth Hernández NP [address] [place] [phone] Nurse Practitioner [facility] 09/11/23 Hand Crocheter Relationship Specialty Start Date End Date Aaron Bliss MD [address] [place] [phone] PCP - General Family Medicine 09/11/23 Elizabeth Hernández NP [address] [place] [phone] PCP - [facility] 10/22/23 Elizabeth Hernández NP [address] [place] [phone] Nurse Practitioner Family Medicine 04/23/23 Elizabeth Hernández NP [address] [place] [id number] Nurse Practitioner Family Medicine 09/11/23 FOR RECORDS PERTAINING TO PATIENTS WHO ARE [...] BE BASED ON THE PRIMARY CLINICAL RECORDS. [facility] [employer] [facility]. provides no warranty or guarantee of the accuracy or completeness of information in this document.
[2024-10-01 10:13] LABS: Basophils Percent Auto 0.6 % (0.2-2.0); Eosinophils Absolute Auto 0.3 10^3/uL (0.0-0.7); Eosinophils Percent Auto 6.2 % (0.9-7.0); Hemoglobin 14.4 g/dL (12.0-16.0); Immature Granulocytes Abs Auto 0.01 10^3/uL (0.00-0.03); Immature Granulocytes Pct Auto 0.2 % (0.0-0.5); Lymphocytes Absolute Auto 1.9 10^3/uL (1.2-3.8); Lymphocytes Percent Auto 36.3 % (20.5-60.0); Mean Corpuscular HGB Conc 34.3 g/dL (29.9-35.2); Mean Corpuscular Hemoglobin 30.8 pg (26.7-34.0); Mean Corpuscular Volume 89.9 fL (81.0-99.0); Mean Platelet Volume 10.4 fL (9.5-13.5); Monocytes Absolute Auto 0.4 10^3/uL (0.3-0.8); Monocytes Percent Auto 7.5 % (1.7-12.0); Neutrophils Absolute Auto 2.6 10^3/uL (1.4-6.5); Neutrophils Percent Auto 49.2 % (43.0-75.0); Platelet Count 259 10^3/uL (150-450); Red Blood Count 4.67 10^6/uL (4.20-5.40); Red Cell Distribution Width 11.9 % (11.0-15.0); White Blood Count 5.2 10^3/uL (4.0-11.0)
[2024-10-01 10:52] LABS: Estimated Average Glucose 97 mg/dL
[2024-10-01 11:18] LABS: Alanine Aminotransferase 10 U/L (14-59); Albumin Globulin Ratio 1.1; Albumin Level 3.8 g/dL (3.4-5.0); Alkaline Phosphatase 55 U/L (46-116); Anion Gap 11.2; Aspartate Amino Transferase 11 U/L (15-37); BUN Creatinine Ratio 14.3; Bilirubin Total 0.6 mg/dL (0.2-1.0); Calcium 9.1 mg/dL (8.5-10.1); Carbon Dioxide 25.8 mmol/L (21.0-32.0); Chloride 105 mmol/L (98-107); Chol HDL Ratio 2.2; Cholesterol 162 mg/dL (<=200); Estimated GFR (African America >60 (>=60 mL/min/1.73m^2); Estimated GFR (Non-African Ame >60 (>=60 mL/min/1.73m^2); Globulin 3.5 g/dL; Glucose 92 mg/dL (74-106); HDL Cholesterol 74 mg/dL (40-60); Sodium 138 mmol/L (136-145); Thyroid Stimulating Hormone 1.502 uIU/mL (0.358-3.740); Total Protein 7.3 g/dL (6.4-8.2); Triglycerides 24 mg/dL (<=150); VLDL CHOLESTEROL 4.8 mg/dL
== END 2024-10-01 09:34 | disposition home or self-care (01) ==
LOC: LAB 09:35
PROVIDERS: PCP Nurse Practitioner; Visit Provider Nurse Practitioner
DX: Z00.00 Encounter for general adult medical examination without abnormal findings (principal)
CPT/HCPCS: 36415; 80053; 80061; 83036; 84443; 85025

== ENCOUNTER 2025-05-25 19:42 | Outpatient (REF) | payer BC, SELFPAY ==
--- OUTSIDE RECORDS SUMMARY | 2025-05-25 15:00 | XMS_ITS | Encounter Summary ---
Author Organization [facility] Address [address] [place] [address] Care Team Providers Care Beekeeper Name Role Phone Elizabeth Hernández ACCOUNT SERVICES COORDINATOR Unavailable [phone] Aaron Bliss MD Primary Care Provider [phone] Elizabeth Hernández ACCOUNT SERVICES COORDINATOR Unavailable [phone] Reason for Visit * ReasonCommentsGynecologic Exam Encounter Details DateTypeDepartmentCare Team (Latest Contact Info)Txvrnvbvxcm28/03/2025 3:00 PM ESTProcedure Visit [facility] [address] [place] [address] Mackenzie Mendez PA [address] [place], [facility]11 Well woman exam with routine gynecological exam Social History Tobacco UseTypesPacks/DayYears UsedDateSmoking Tobacco: NeverPassive Smoke Exposure: NeverSmokeless Tobacco: NeverAlcohol UseStandard Drinks/WeekComments Never0 (1 standard drink = 0.6 oz pure alcohol)Humiliation, Afraid, Rape, and Kick questionnaireAnswerDate RecordedWithin the last year, have you been afraid of your partner or ex-partner?No05/25/2023Within the last year, have you been humiliated or emotionally abused in other ways by your partner or ex-partner?No 05/25/2023Within the last year, have you been kicked, hit, slapped, or otherwise physically hurt by your partner or ex-partner?No05/25/2023Within the last year, have you been raped or forced to have any kind of sexual activity by your part ner or ex-partner?No05/25/2023Social Connection and Isolation PanelAnswerDate RecordedFrequency of Communication with Friends and FamilyNot on file05/25/2023 Frequency of Social Gatherings with Friends and FamilyNot on file05/25/2023 Attends Christian ServicesNot on file05/25/2023ctive Member of Clubs or OrganizationsNot on file05/25/2023ttends Club or Organization MeetingsNot on file05/25/2023re you , , , , never , or living with a partner?Zvfzgfv1705/25/2023Overall Financial Resource Strain (CARDIA)AnswerDate RecordedHow hard is it for you to pay for the very basics like food, housing, medical care, and heating?Not hard at all05/25/2023HQ-2 AnswerDate RecordedPatient Health Questionnaire-2 Fawfx532Hunger Vital SignAnswerDate RecordedWithin the past 12 months, you worried that your food would run out before you got the money to buymore.Never true05/25/2023Within the past 12 months, the food you bought just didn't last and you didn't have money to get more.Never true05/25/2023RAPARE - TransportationAnswerDate RecordedIn the past 12 months, has lack of transportation kept you from medical appointments or from getting medications?No05/25/2023In the past 12 months, has lack of transportation kept you from meetings, work, or from getting things needed for daily living?No05/25/2023Housing Stability Vital SignAnswerDate RecordedIn the last 12 months, was there a time when you were not able to pay the mortgage or rent on time?No05/25/2023Number of Places Lived in the Last Year Not on file05/25/2023Unstable Housing in the Last YearNot on file05/25/2023 CommentsNoSex and Gender InformationValueDate RecordedSex Assigned at BirthNot on fileLegal DghAdtgbh06/15/2023 8:14 PM EDTGender IdentityNot on file Sexual OrientationNot on filedocumented as of this encounter Last Filed Vital Signs Vital SignReadingTime TakenCommentsBlood Xyictubz59/6005/25/2025 3:31 PM EST Pulse--Temperature--Respiratory Rate--Oxygen Saturation--Inhaled Oxygen Concentration--Mbdoyh80.7 kg (114 lb)05/25/2025 3:31 PM ESTHeight--Body Mass Index19.5710 11:08 AM EDTdocumented in this encounter Progress Notes * KIRAN Zavala - 05/25/2025 3:00 PM EST Reason for Appointment: Patient ID: Irma Lam is a 39 y.o. female who presents for Gynecologic Exam Patient presents today for Annual Exam. MEDICATIONS Current Outpatient Medications Medication Instructions traZODone (DESYREL) 100 mg, Oral, Nightly PRN ALLERGIES Allergies Allergen Reactions Sulfa Antibiotics Hives PROBLEMS Active Ambulatory Problems Diagnosis Date Noted Cervical high risk human papillomavirus (HPV) DNA test positive 05/26/2023 Fallopian tube disorder 05/26/2023 Gastroesophageal reflux disease 05/26/2023 HGSIL on cytologic smear of cervix 05/26/2023 Hypothyroidism affecting (HCC) 05/26/2023 Insomnia 05/26/2023 Polycystic ovarian syndrome 05/26/2023 ASCUS with positive high risk HPV cervical 09/11/2023 Encounter for wellness examination 04/21/2024 Resolved Ambulatory Problems Diagnosis Date Noted No Resolved Ambulatory Problems Past Medical History: Diagnosis Date History of hyperthyroidism HISTORY PAST MEDICAL HISTORY SOCIAL HISTORY Past Medical History: Diagnosis Date ASCUS with positive high risk HPV cervical 09/11/2023 Fallopian tube disorder History of hyperthyroidism Insomnia Social History Tobacco Use Smoking status: Never Passive exposure: Never Smokeless tobacco: Never Vaping Use Vaping status: Never Used Substance Use Topics Alcohol use: Never Drug use: Never FAMILY HISTORY Family History Problem Relation Name Age of Onset Asthma Sister (1) Cancer Maternal Grandmother Breast cancer Maternal Grandmother Melanoma Neg Hx SURGICAL HISTORY Past Surgical History: Procedure Laterality Date DILATION AND CURETTAGE 02/2019 REVIEW OF SYSTEMS Review of Systems: Review of Systems Constitutional: Negative. HENT: Negative. Eyes: Negative. Respiratory: Negative. Cardiovascular: Negative. Gastrointestinal: Negative. Genitourinary: Negative. Musculoskeletal: Negative. Skin: Negative. Neurological: Negative. All other systems reviewed and are negative. Hematological: Negative. Endocrine: Negative. Allergic/Immunologic: Negative. OBJECTIVE Objective: Physical Exam Constitutional: Appearance: Normal appearance. She is well-developed. Genitourinary: Vulva normal. Right Adnexa: not tender and no mass present. Left Adnexa: not tender and no mass present. No cervical discharge. Breasts: Breasts are soft. Right: Normal. Left: Normal. HENT: Head: Normocephalic. Nose: Nose normal. Mouth/Throat: Mouth: Mucous membranes are moist. Cardiovascular: Rate and Rhythm: Normal rate and regular rhythm. Pulmonary: Effort: Pulmonary effort is normal. Breath sounds: Normal breath sounds. Abdominal: General: Bowel sounds are normal. There is no distension. Palpations: Abdomen is soft. Tenderness: There is no abdominal tenderness. There is no guarding or rebound. Musculoskeletal: General: No swelling. Normal range of motion. Cervical back: Normal range of motion. Right lower leg: No edema. Left lower leg: No edema. Neurological: General: No focal deficit present. Mental Status: She is alert and oriented to person, place, and time. Skin: General: Skin is warm and dry. Psychiatric: Mood and Affect: Mood normal. Behavior: Behavior normal. Vitals and nursing note reviewed. Exam conducted with a director of cardiology service line present. Vitals: Estimated body mass index is 19.64 kg/m?? as calculated from the following: Height as of 04/21/24: 5' 4 . Weight as of 04/21/24: 114 lb 6.4 oz. BP: No LMP recorded. Assessment/Plan ICD-10-CM 1. Well woman exam with routine gynecological exam Z01.419 Pap Smear HPV DNA probe, amplified Assessment/Plan Annual Exam: Patient presents today for an annual exam. Patient states she is doing well and has no complaints. Pap was obtained without difficulty. Orders Placed This Encounter Procedures HPV DNA probe, amplified Follow Up: Patient is to return in one year for annual unless needed otherwise. Documented by Judith Mccormick MA on behalf of: KIRAN Zavala documented in this encounter Plan of Treatment NameTypePriorityAssociated DiagnosesOrder SchedulePap SmearPathology and CytologyRoutine Well woman exam with routine gynecological exam Ordered: 05/25/2025HPV DNA probe, amplifiedMicrobiologyRoutine Well woman exam with routine gynecological exam Ordered: 05/25/2025documented as of this encounter Visit Diagnoses Diagnosis Well woman exam with routine gynecological exam Routine gynecological examination documented in this encounter Care Teams Team MemberRelationshipSpecialtyStart DateEnd Date Aaron Bliss MD [address] [place] [phone] PCP - GeneralFamily Medicine09/11/23 Elizabeth Hernández NP [address] [place] [address] Nurse PractitionerFamily Mjjkjfgu20/1/23 Elizabeth Hernández NP [address] [place] [address] Nurse PractitionerFamily Medicine09/11/23documented as of this encounter
--- OUTSIDE RECORDS SUMMARY | 2025-05-25 19:45 | XMS_ITS | Clinical Summary ---
Author Organization [facility] Address [address] [place] [address] Care Team Providers Care Unix Systems Administrator Name Role Phone Elizabeth Hernández VESSEL CAPTAIN Unavailable [phone] Aaron Bliss MD Primary Care Provider [phone] Elizabeth Hernández VESSEL CAPTAIN Unavailable [phone] Allergies Active AllergyReactionsCriticalityNoted DateCommentsSulfa AntibioticsHivesMedium 12/19/2022 Medications MedicationSigDispense QuantityRefillsLast FilledStart DateEnd DateStatus traZODone (Desyrel) 50 MG tablet Indications:Insomnia, unspecified typeTake 2 tablets (100 mg) by mouth as needed at bedtime for sleep 180 tablet 5Active Active Problems ProblemNoted DateDiagnosed DateEncounter for wellness diadfifcrje52/30/2024 Assessment & Plan (04/21/2024 11:20 AM EDT): Reviewed Ht/Wt/BMI Recommend eye exam yearly Recommend dental exams twice a year Balance work/leisure activities Exercises is recommended most days of the week (appropriate as chronic conditions allow) Follow up yearly and prn ASCUS with positive high risk HPV vhqovlhi17/21/2024ervical high risk human papillomavirus (HPV) DNA test npbzyijh12/04/2023Fallopian tube disorder 05/26/2023astroesophageal reflux lrfkzbj8605/26/2023HGSIL on cytologic smear of qknhbo0205/26/2023Hypothyroidism affecting alakbxcwb06/04/1662Clxjjkui62/04/2023 Assessment & Plan (04/21/2024 11:20 AM EDT): Continue current meds at current dose Is doing well Assessment & Plan (01/21/2024 9:27 AM EDT): Continue current meds at current dose Is doing well I will see her yearly for this, however she is also going to schedule a fu appt for her wellness Assessment & Plan (09/11/2023 3:02 PM EDT): Continue current meds at current dose Fu in 3-4 months Assessment & Plan (05/26/2023 4:55 PM EST): About 50% better I will increase the trazodone to 50mg 1-2 tablets at HS, she can break in half for 75mg and if not helping, increase to 2 Fu in 3 months Polycystic ovarian rmuljvnm62/04/2023 Encounters DateTypeDepartmentCare BcgyThahjzwcasj70/03/2025 3:00 PM ESTProcedure Visit [facility] [address] [address] Mackenzie Mendez PA Well woman exam with routine gynecological exam05/25/2025amboo flowsheet [facility] [address] [place] [address] Mackenzie Mendez PA 05/24/2025Travelfrom Last 3 Months Immunizations ImmunizationAdministration DatesNext CjrQCS6807/03/2019Hep B, Adolescent or Xkgprrovh72/18/2005,12/13/2004,01/17/1999Influenza, injectable, quadrivalent, preservative free05/03/2020MMR02/03/2007,01/17/1999Meningococcal ATGJ763 Tdap01/28/2007 Family History Medical HistoryRelationNameCommentsBreast cancerMaternal GrandmotherCancer Maternal GrandmotherAsthmaSister(1)MelanomaNeg HxRelationNameStatusComments Daughter(2)AliveFatherAliveMaternal GrandfatherAliveMaternal GrandmotherDeceased MotherAlivePaternal GrandfatherDeceasedPaternal GrandmotherAliveSister(1)Alive Social History Tobacco UseTypesPacks/DayYears UsedDateSmoking Tobacco: NeverPassive Smoke Exposure: NeverSmokeless Tobacco: Never Tobacco Cessation:Counseling Given: No Alcohol UseStandard Drinks/WeekCommentsNever0 (1 standard drink = 0.6 oz pure alcohol)Humiliation, Afraid, Rape, and Kick questionnaireAnswerDate Recorded Within the last year, have you been afraid of your partner or ex-partner?No 05/25/2023Within the last year, have you been humiliated or emotionally abused in other ways by your partner or ex-partner?No05/25/2023Within the last year, have you been kicked, hit, slapped, or otherwise physically hurt by your partner or ex-partner?No05/25/2023Within the last year, have you been raped or forced to have any kind of sexual activity by your partner or ex-partner?No05/25/2023 Social Connection and Isolation PanelAnswerDate RecordedFrequency of Communication with Friends and FamilyNot on file05/25/2023Frequency of Social Gatherings with Friends and FamilyNot on file05/25/2023ttends Amish ServicesNot on file05/25/2023ctive Member of Clubs or OrganizationsNot on file 05/25/2023ttends Club or Organization MeetingsNot on file05/25/2023re you , , , , never , or living with a partner? Pepocwd0205/25/2023Overall Financial Resource Strain (CARDIA)AnswerDate Recorded How hard is it for you to pay for the very basics like food, housing, medical care, and heating?Not hard at all05/25/2023HQ-2AnswerDate RecordedPatient Health Questionnaire-2 Nuoku342Hunger Vital SignAnswerDate Recorded Within the past 12 months, you worried that your food would run out before you got the money to buymore.Never true05/25/2023Within the past 12 months, the food you bought just didn't last and you didn't have money to get more.Never true 05/25/2023RAPARE - TransportationAnswerDate RecordedIn the past 12 months, has lack of transportation kept you from medical appointments or from getting medications?No05/25/2023In the past 12 months, has lack of transportation kept you from meetings, work, or from getting things needed for daily living?No 05/25/2023Housing Stability Vital SignAnswerDate RecordedIn the last 12 months, was there a time when you were not able to pay the mortgage or rent on time?No 05/25/2023Number of Places Lived in the Last YearNot on file05/25/2023Unstable Housing in the Last YearNot on file05/25/2023CommentsNoSex and Gender InformationValueDate RecordedSex Assigned at BirthNot on fileLegal SexFemale 09/04/2022 8:14 PM EDTGender IdentityNot on fileSexual OrientationNot on file Last Filed Vital Signs Vital SignReadingTime TakenCommentsBlood Vivtwjkq94/6005/25/2025 3:31 PM EST Snoni301304/21/2024 11:08 AM CQNKxxvbvuytmo09.9 ??C (98.5 ??F)04/21/2024 11:08 AM EDTRespiratory Oceu7088 11:08 AM EDTOxygen Tvsgvezrnh35%04/21/2024 11:08 AM EDTInhaled Oxygen Concentration--Znfiao63.7 kg (114 lb)05/25/2025 3:31 PM EST Oyazcw171.6 cm (5' 4 )04/21/2024 11:08 AM EDTBody Mass Index19.5710 11:08 AM EDT Plan of Treatment Health MaintenanceDue DateLast DoneCommentsHPV/Ctvscw0510/13/2016COVID-19 Vaccine ( season), 08/06/2021Influenza Vaccine (#1) /10/2023, 05/03/2020Cervical Cancer Dbjvsnjnm32/26/2027Pap Smear , 10/15/2022neumococcal Vaccine: Pediatrics (0 to 5 Years) and At-Risk Patients (6 to 64 Years)Aged OutNo longer eligible based on patient's age to complete this topic Procedures Procedure NamePriorityDate/TimeAssociated DiagnosisCommentsPAP SMEARRoutine 02/16/2024 12:00 AM EDTfrom Last 3 Months or Most Recently Relevant to Health Maintenance Results * Pap Smear (02/16/2024 12:00 AM EDT)Specimen (Source)Anatomical Location / LateralityCollection Method / VolumeCollection TimeReceived TimeSwabCervical swab / Unknown Narrative Authorizing ProviderResult TypeResult StatusFazio Nurse [facility] ObLAB CYTOLOGY ORDERABLESFinal ResultPerforming OrganizationAddressCity/State/ZIP CodePhone Number EXTERNAL LAB from Last 3 Months or Most Recently Relevant to Health Maintenance Insurance * Guarantor: Irma Lam TypeRelation to PatientDate of PhoneBilling AddressPersonal/UkihvmPcan26/23/1987 [facility] [place] [address] Care Teams Team MemberRelationshipSpecialtyStart DateEnd Date Aaron Bliss MD [address] [place] [address] PCP - GeneralFamily Medicine09/11/23 Elizabeth Hernández NP [address] [place] [address] Nurse PractitionerFamily Cuhchgqh39/1/23 Elizabeth Hernández NP [address] [place] [address] Nurse Practitionermily Medicine09/11/23
--- OUTSIDE RECORDS SUMMARY | 2025-05-25 19:45 | XMS_ITS | Clinical Summary ---
Author Organization [facility] Address [id number] [place] [address] Care Team Providers Care Product Safety Administrator Name Role Phone Unavailable Primary Care Provider Unavailabl e Allergies Active AllergyReactionsCriticalityNoted DateCommentsSulfa (Sulfonamide Antibiotics)BqrnUrj7303/08/2019 Medications MedicationSigDispense QuantityRefillsLast FilledStart DateEnd DateStatus progesterone (FIRST-PROGESTERONE VGS) 200 mg suppository Insert 200 mg into the vagina nightly.Active levothyroxine (SYNTHROID, LEVOTHROID) 50 MCG tablet Take 50 mcg by mouth daily.Active POT812-uuirxfz fumarate-FA () 28-800 mg-mcg tablet Take 1 tablet by mouth daily.Active Family History Medical HistoryRelationNameCommentsCancerMaternal GrandmotherAsthmaSister RelationNameStatusCommentsFatherAliveMaternal GrandfatherAliveMaternal GrandmotherDeceasedMotherAlivePaternal GrandfatherDeceasedPaternal Grandmother AliveSisterAlive Social History Tobacco UseTypesPacks/DayYears UsedDateSmoking Tobacco: NeverSmokeless Tobacco: NeverChildcareAnswerDate VmopolfsFlzgcvhliGpwagmd14/12/2019EmploymentAnswerDate XcglmnbcSouhylsnjlSgfxyas18/12/2019Purpose - LifeAnswerDate RecordedPurpose and direction in hlqeCltopfb63/11/2021CommentsNoSex and Gender Information ValueDate RecordedSex Assigned at BirthNot on fileLegal WmjYobzol42/12/2019 3:45 PM EDTGender IdentityNot on fileSexual OrientationNot on file Last Filed Vital Signs Vital SignReadingTime TakenCommentsBlood Pressure--Pulse--Temperature-- Respiratory Rate--Oxygen Saturation--Inhaled Oxygen Concentration--Alsehn90.3 kg (113 lb)03/08/2019 8:22 AM EDTHeight--Body Mass Index-- Plan of Treatment Health MaintenanceDue DateLast DoneCommentsDepression Chebqvpuo59/23/1999Tobacco Ltylfublz10/23/1999Adult BMI Thnlnrvaz04/23/2005DTaP,Tdap and Td Vaccines (1 - Tdap)2005Pap Smear10/14/2007Influenza Akihgwk6902/21/2025 Medical Devices Not on file Insurance
--- OUTSIDE RECORDS SUMMARY | 2025-05-25 19:45 | XMS_ITS | Encounter Summary ---
Author Organization [facility] Address [address] [place] [address] Care Team Providers Care Rn Mobile Name Role Phone Elizabeth Hernández PRODUCE PRODUCTION TEAM MEMBER Unavailable [phone] Aaron Bliss MD Primary Care Provider [phone] Elizabeth Hernández PRODUCE PRODUCTION TEAM MEMBER Unavailable [phone] Encounter Details DateTypeDepartmentCare Team (Latest Contact Info)Cdnxfwvjpyv10/03/2025amboo flowsheet [facility] [address] [place] [address] Mackenzie Mendez PA [address] [place], [facility] Social History Tobacco UseTypesPacks/DayYears UsedDateSmoking Tobacco: NeverPassive [...] with Friends and FamilyNot on file05/25/2023 Attends Yarsanism ServicesNot on file05/25/2023ctive Member of Clubs or OrganizationsNot on file05/25/2023ttends Club or Organization MeetingsNot on file05/25/2023re you , , , , never , or living with a partner?Hnbxzcj6405/25/2023Overall Financial Resource Strain (CARDIA)AnswerDate RecordedHow hard is it for you to pay for the very basics like food, housing, medical care, and heating?Not hard at all05/25/2023HQ-2 AnswerDate RecordedPatient Health Questionnaire-2 Zxjfp624Hunger Vital SignAnswerDate RecordedWithin the past 12 months, [...] InformationValueDate RecordedSex Assigned at BirthNot on fileLegal ZpfXvapqr03/15/2023 8:14 PM EDTGender IdentityNot on file Sexual OrientationNot on filedocumented as of this encounter Plan of Treatment Not on file documented as of this encounter Visit Diagnoses Not on filedocumented in this encounter Care Teams Team MemberRelationshipSpecialtyStart DateEnd Date Aaron Bliss MD [address] [place] [address] PCP - GeneralFamily Medicine09/11/23 Elizabeth Hernández NP [address] [place] [address] Nurse PractitionerFamily Spdgspzi37/1/23 Elizabeth Hernández NP [address] [place] [address] Nurse PractitionerFamily Medicine09/11/23documented as of this encounter
--- OUTSIDE RECORDS SUMMARY | 2025-05-25 19:45 | XMS_ITS | Clinical Summary ---
Author Organization [facility] Address [address] [place] [address] Phone Care Team Providers Care Assembly Line Leader Name Role Phone Gaurav Palma DO Primary Care Provider + Social History Tobacco UseTypesPacks/DayYears UsedDateSmoking Tobacco: Never Assessed CommentsUnknownSex and Gender InformationValueDate RecordedSex Assigned at Not on fileLegal BeeQucbfu50/25/2022 4:32 PM ESTGender IdentityNot on fileSexual OrientationNot on file Last Filed Vital Signs Vital SignReadingTime TakenCommentsBlood Vnngdcwl947/6804/25/2021 10:10 AM EDT Ezcsq458204/25/2021 10:10 AM NJIDhoxutnogrh89.4 ??C (97.5 ??F)04/25/2021 10:10 AM EDTRespiratory Xcyq2606 10:10 AM EDTOxygen Kfttsdfdzx52%04/25/2021 10:10 AM EDTInhaled Oxygen Concentration--Weight--Iegjlv952.5 cm (5' 3.98 )04/25/2021 10:10 AM EDTBody Mass Index-- Plan of Treatment Not on file Care Teams Team MemberRelationshipSpecialtyStart DateEnd Date Gaurav Palma DO [address] [id number] PCP - Qtvtncp35/3/21
--- OUTSIDE RECORDS SUMMARY | 2025-05-25 19:45 | XMS_ITS | Encounter Summary ---
Author Organization [facility] Address [address] [place] [address] Care Team Providers Care Box Coverer Hand Name Role Phone Elizabeth Hernández STATION CASHIER Unavailable [phone] Aaron Bliss MD Primary Care Provider [phone] Elizabeth Hernández STATION CASHIER Unavailable [phone] Encounter Details DateTypeDepartmentCare Team (Latest Contact Info)Cpinpaxxvdr84/02/2025Travel Social History Tobacco UseTypesPacks/DayYears UsedDateSmoking Tobacco: NeverPassive [...] with Friends and FamilyNot on file05/25/2023 Attends Zoroastrianism ServicesNot on file05/25/2023ctive Member of Clubs or OrganizationsNot on file05/25/2023ttends Club or Organization MeetingsNot on file05/25/2023re you , , , , never , or living with a partner?Hxbsztx8305/25/2023Overall Financial Resource Strain (CARDIA)AnswerDate RecordedHow hard is it for you to pay for the very basics like food, housing, medical care, and heating?Not hard at all05/25/2023HQ-2 AnswerDate RecordedPatient Health Questionnaire-2 Lnbsw785Hunger Vital SignAnswerDate RecordedWithin the past 12 months, [...] Housing in the Last YearNot on file05/25/2023 CommentsUnknownSex and Gender InformationValueDate RecordedSex Assigned at BirthNot on fileLegal JsdXdmcpy70/15/2023 8:14 PM EDTGender IdentityNot on fileSexual OrientationNot on filedocumented as of this encounter Plan of Treatment Not on file documented as of this encounter Visit Diagnoses Not on filedocumented in this encounter Care Teams Team MemberRelationshipSpecialtyStart DateEnd Date Aaron Bliss MD [address] [place] [address] PCP - GeneralFamily Medicine09/11/23 Elizabeth Hernández NP [address] [place] [address] Nurse PractitionerFathe dimock center Gwgstjiw96/1/23 Elizabeth Hernández NP [address] [place] [address] Nurse PractitionerFaPiedmont Newnan09/11/23documented as of this encounter
== END 2025-05-25 19:43 | disposition home or self-care (01) ==
LOC: LAB 19:42
PROVIDERS: PCP Nurse Practitioner; Visit Provider Physician Assistant
DX: Z01.419 Encounter for gynecological examination (general) (routine) without abnormal findings (principal)
CPT/HCPCS: 87624; 88175